=== PATIENT | female | born 1980 | race African-American/Black ===

== ENCOUNTER 2017-12-03 20:36 | Emergency (ER) | payer OTHER ==
[~2017-12-03] VITALS: Ht 180.3 cm; Wt 122.7 kg
[~2017-12-03 20:36] MED LIST: ALBU17AE27 IH; IBUP-2071 PO
[2017-12-03] MEDS ORDERED: KETOROLAC TROMETHAMINE 60 MG/2 ML VIAL IM ONE (21:45)
[2017-12-04 00:13] VITALS: BP 139/92
== END 2017-12-04 00:25 | disposition home or self-care (01) ==
LOC: EMS 20:39
DX: S80.02XA Contusion of left knee, initial encounter (principal); S60.212A Contusion of left wrist, initial encounter; M54.5 Low back pain; F41.9 Anxiety disorder, unspecified; J45.909 Unspecified asthma, uncomplicated; F17.210 Nicotine dependence, cigarettes, uncomplicated; Z88.0 Allergy status to penicillin; W01.0XXA Fall on same level from slipping, tripping and stumbling without subsequent striking against object, initial encounter; Y93.89 Activity, other specified; Y92.89 Other specified places as the place of occurrence of the external cause; Y99.8 Other external cause status
CPT/HCPCS: 72100; 73110; 73562; 96372; 99284; 99406; J1885; 29530